=== PATIENT | male | born 1935 | race Caucasian/White ===

== ENCOUNTER → 2016-11-05 | Outpatient (CLI) | payer OTHER | LOC: BHFA 15:00 | PROVIDERS: ATTEND Internal Medicine Cardiovascular Disease | DX: R60.0 Localized edema (principal) ==

== ENCOUNTER 2017-04-22 10:10 | Emergency (ER) | payer OTHER ==
[2017-04-22 10:18] VITALS: RESP 18
--- NOTE | 2017-04-22 10:32 | CPEKG ---
Heart Rate: 75 RR Interval: 800 P-R Interval: 238 QRSD Interval: 104 QT Interval: 428 QTC Interval: 479 P Lenore: 0 QRS Lenore: -5 T Wave Lenore: -8 EKG Severity - ABNORMAL ECG - EKG Impression: Atrial fibrillation EKG Impression: ABNRM R PROG, CONSIDER ASMI OR LEAD PLACEMENT EKG Impression: BORDERLINE T ABNORMALITIES, INFERIOR LEADS EKG Impression: BORDERLINE PROLONGED QT INTERVAL Electronically Signed By: Deedee Del Angel 22-Apr-2017 14:36:42
--- NOTE | 2017-04-22 10:49 | EDPHY ---
H & P Stated Complaint: Vertigo since this morning; also c/o R leg/back pain post car trip[ Time Seen by Provider: 04/22/17 10:22 HPI/ROS: CHIEF COMPLAINT: Vertigo, leg pain HISTORY OF PRESENT ILLNESS: The patient is a 81 y/o male with a history of vertigo complaining of now-resolved vertigo onset this morning. He returned from a driving trip to [place] on Tuesday, 2 days ago. During the trip he developed lower back pain with right hip pain. His symptoms are alleviated somewhat with massage, Aleve, and stretching exercises. He reports doing vertigo exercises daily as a preventative measure. Today while performing these exercises he lied on his left side and developed acute onset dizziness. These symptoms worsened with movement of his head and felt exactly the same as prior episodes except it lasted much longer for several minutes. His dizziness has since improved. He denies headache, weakness, paresthesias, incontinence, vision changes, or other symptoms. He was unable to get an appointment with his PCP today and was referred to the ED or urgent care for evaluation. REVIEW OF SYSTEMS: Constitutional: No fever, no chills Eyes: No visual changes ENT: No sore throat Respiratory: No cough, no shortness of breath Cardiac: No chest pain Gastrointestinal: No nausea, no vomiting, no abdominal pain Genitourinary: No hematuria, no dysuria Musculoskeletal: see HPI Skin: No rash Neurological: No headache, no numbness, no weakness Psychiatric: No depression - Personal History Current Tetanus Diphtheria and Acellular Pertussis (TDAP): Yes - Medical/Surgical History PMH: PMH includes: 1. Atrial fibrillation 2. Hypertension 3. Hyperlipidemia 4. Vertigo Prior medical records reviewed including ED visit for epistaxis on 05/02/12. Hx Cardiac Disease: Yes Other PMH: vertigo w/ negative neuro workup 2016. afib - Social History Smoking Status: Former smoker Additional Social History: Former commercial drone pilot. Nonsmoker. at bedside. PCP: Dr. Mccord - Physical Exam Exam: General Appearance: Alert, no distress Eyes: Pupils equal and round, no conjunctival pallor or injection, no nystagmus ENT, Mouth: Mucous membranes moist Neck: Normal inspection Respiratory: Lungs are clear to auscultation Cardiovascular: Regular rate and rhythm Gastrointestinal: Abdomen is soft and non- tender Neurological: Alert, oriented x3, cranial nerves II through XII intact, motor 5 /5, sensory intact to light touch, normal gait Skin: Warm and dry, no rash Extremities: Nontender, no pedal edema, normal straight-leg raise Psychiatric: Mood and affect normal Constitutional: Initial Vital Signs Temperature (C) 36.7 C 04/22/17 10:12 Heart Rate 77 04/22/17 10:12 Respiratory Rate 18 04/22/17 10:12 Blood Pressure 137/105 H 04/22/17 10:12 O2 Sat (%) 99 04/22/17 10:12 O2 Delivery Mode Room Air Allergies/Adverse Reactions: No Known Allergies Allergy (Verified 04/22/17 10:18) Home Medications: Medication Instructions Recorded Aspirin [Aspirin 81mg (*)] 04/22/17 Atorvastatin Calcium [Lipitor 40 40 mg PO 04/22/17 mg (*)] Diltiazem [Cardizem 60 MG (*)] 60 mg PO 04/22/17 Hydrochlorothiazide [HCTZ (*)] 25 mg PO DAILY 04/22/17 Rivaroxaban [Xarelto 10mg (*)] 10 mg PO 04/22/17 Medical Decision Making ED Course/Re-evaluation: This is a 81 y/o male with a history of vertigo who presents with now-resolved acute onset dizziness after rolling onto his left side this morning. He also complains of right gluteal pain since a long car trip earlier this week. His neuro exam is completely normal and his dizziness has resolved upon assessment. No indication for imaging at this time. The patient is able to walk with a steady gait. We will perform EKG and basic labs and if those are normal he will be discharged home with standard vertigo and sciatica care instructions with specific follow up and return precautions. He is comfortable with this plan. The 12 lead EKG was interpreted by myself. Atrial fibrillation rate 75. No ischemia. See hard copy and/or "tracemaster" electronic copy for interpretation. Reassessed patient. Labs unremarkable except for slightly low potassium at 3.3. He will receive 20meq PO potassium prior to discharge. His exam remains normal. He will be discharged home in good condition. - Data Points Laboratory Results: Laboratory Results 04/22/17 10:36 04/22/17 10:36 04/22/17 04/22/17 10:36 10:36 WBC 7.32 10^3/uL 10^3/uL (3.80-9.50) RBC 4.70 10^6/uL 10^6/uL (4.40-6.38) Hgb 16.6 g/dL g/dL (13.7-17.5) Hct 44.5 % % (40.0-51.0) MCV 94.7 fL fL (81.5-99.8) MCH 35.3 pg H pg (27.9-34.1) MCHC 37.3 g/dL H g/dL (32.4-36.7) RDW 12.3 % % (11.5-15.2) Plt Count 144 10^3/uL L 10^3/uL (150-400) MPV 10.5 fL fL (8.7-11.7) Neut % (Auto) 40.8 % % (39.3-74.2) Lymph % (Auto) 39.2 % % (15.0-45.0) Franklin % (Auto) 9.4 % % (4.5-13.0) Eos % (Auto) 9.7 % H % (0.6-7.6) Baso % (Auto) 0.8 % % (0.3-1.7) Nucleat RBC Rel Count 0.0 % % (0.0-0.2) Absolute Neuts (auto) 2.98 10^3/uL 10^3/uL (1.70-6.50) Absolute Lymphs (auto) 2.87 10^3/uL 10^3/uL (1.00-3.00) Absolute Monos (auto) 0.69 10^3/uL 10^3/uL (0.30-0.80) Absolute Eos (auto) 0.71 10^3/uL H 10^3/uL (0.03-0.40) Absolute Basos (auto) 0.06 10^3/uL 10^3/uL (0.02-0.10) Absolute Nucleated RBC 0.00 10^3/uL 10^3/uL (0-0.01) Immature Gran % 0.1 % % (0.0-1.1) Immature Gran # 0.01 10^3/uL 10^3/uL (0.00-0.10) Sodium 142 mEq/L mEq/L (134-144) Potassium 3.3 mEq/L L mEq/L (3.5-5.2) Chloride 103 mEq/L mEq/L (97-110) Carbon Dioxide 21 mEq/l L mEq/l (22-31) Anion Gap 18 mEq/L H mEq/L (8-16) BUN 18 mg/dL mg/dL (7-23) Creatinine 1.2 mg/dL mg/dL (0.7-1.3) Estimated GFR 58 Glucose 133 mg/dL H mg/dL (70-100) Calcium 9.7 mg/dL mg/dL (8.5-10.4) Departure - Departure Disposition: Home, Routine, Self-Care Clinical Impression: Vertigo, Right sided sciatica Condition: Good Instructions: Meclizine (By mouth), Vertigo (ED), Sciatica (ED) Additional Instructions: 1. Take Meclizine, available [id number], if your vertigo symptoms return. 2. If your dizziness becomes persistent for more than 1-2 days, I recommend follow up with an ENT. You've been referred to Dr. Wren. 3. Use Aleve as directed on the packaging for your sciatica for the next few days. Follow up with your primary care provider for unimproved pain over the next few days. 4. Return to the ED for severe headache, weakness, numbness, vision changes, bowel or bladder incontinence, or other worsening of condition. 5. Your potassium is slightly low at 3.3. I recommend follow up with your PCP for this in the next week. Referrals: Daron Mccord MD [Primary Care Provider] - As per Instructions Lara Reyes MD [Medical Doctor] - As per Instructions Report Scribed for: Deedee Del Angel Report Scribed by: Hayde Lockwood Date of Report: 04/22/17 Time of Report: 10:49 Physician Review and Approval Statement: 04/22/17 10:49 Portions of this note were transcribed by a director global medical affairs. I personally performed a history, physical exam, medical decision making, and confirmed accuracy of information the transcribed note.
[2017-04-22 10:54] LABS: % IMMATURE GRANULYOCYTES 0.1 % (0.0-1.1); ABSOLUTE IMMATURE GRANULOCYTES 0.01 10^3/uL (0.00-0.10); ADD DIFF? NO; ADD MORPH? NO; ADD SCAN? NO; ATYPICAL LYMPHOCYTE FLAG 10 (0-99); FRAGMENT RBC FLAG 0 (0-99); HEMATOCRIT 44.5 % (40.0-51.0); HEMOGLOBIN 16.6 g/dL (13.7-17.5); LEFT SHIFT FLG 0 (0-99); LIPEMIA HEMOLYSIS FLAG 90 (0-99); MEAN CELL HEMOGLOBIN 35.3 pg (27.9-34.1); MEAN CELL HEMOGLOBIN CONCENTR. 37.3 g/dL (32.4-36.7); MEAN CELL VOLUME 94.7 fL (81.5-99.8); MEAN PLATELET VOLUME 10.5 fL (8.7-11.7); PLATELET CLUMPS FLAG 10 (0-99); PLATELET COUNT 144 10^3/uL (150-400); RED CELL DISTRIBUTION WIDTH 12.3 % (11.5-15.2)
[2017-04-22 11:12] LABS: ANION GAP 18 mEq/L (8-16); CALCIUM 9.7 mg/dL (8.5-10.4); CARBON DIOXIDE 21 mEq/l (22-31); CHLORIDE 103 mEq/L (97-110); CREATININE 1.2 mg/dL (0.7-1.3); GLOMERULAR FILTRATION RATE 58; GLUCOSE 133 mg/dL (70-100); POTASSIUM 3.3 mEq/L (3.5-5.2); SODIUM 142 mEq/L (134-144)
[2017-04-22] MEDS ORDERED: POTASSIUM CL 20 MEQ PKT PO ONE (11:26)
[2017-04-22 12:02] VITALS: BP 125/78; PULSE 71; TEMP 97.9; O2SAT 95
== END 2017-04-22 12:04 | disposition home or self-care (01) ==
DX: R42 Dizziness and giddiness (principal); M54.31 Sciatica, right side; I10 Essential (primary) hypertension; Z79.82 Long term (current) use of aspirin; Z87.891 Personal history of nicotine dependence

== ENCOUNTER → 2018-10-11 | Outpatient (CLI) | payer OTHER | END | disposition home or self-care (01) | LOC: FCPNEURO 21:00 | PROVIDERS: ATTEND Psychiatry & Neurology Sleep Medicine | DX: G47.31 Primary central sleep apnea (principal) ==

== ENCOUNTER 2018-10-31 09:04 | Inpatient (IN) | payer OTHER ==
--- NOTE | 2018-10-31 09:45 | EDPHY ---
H & P Stated Complaint: 2xmech falls yest, denies LOC/hit head, L hip pn s deform Time Seen by Provider: 10/31/18 09:07 - Medical/Surgical History Hx Asthma: No Hx Chronic Respiratory Disease: No Hx Diabetes: No Hx Cardiac Disease: Yes Hx Renal Disease: No Hx Cirrhosis: No Hx Alcoholism: No Hx HIV/AIDS: No Hx Splenectomy or Spleen Trauma: No Other PMH: vertigo w/ negative neuro workup 2015. afib - Social History Smoking Status: Former smoker Constitutional: Initial Vital Signs Temperature (C) 36.6 C 10/31/18 09:12 Heart Rate 104 H 10/31/18 09:12 Respiratory Rate 20 10/31/18 09:12 Blood Pressure 134/90 H 10/31/18 09:12 O2 Sat (%) 97 10/31/18 09:12 O2 Delivery Mode Room Air Allergies/Adverse Reactions: No Known Allergies Allergy (Verified 10/31/18 09:11) Home Medications: Medication Instructions Recorded Aspirin [Aspirin 81mg (*)] 04/22/17 Atorvastatin Calcium [Lipitor 40 40 mg PO 04/22/17 mg (*)] Diltiazem [Cardizem 60 MG (*)] 60 mg PO 04/22/17 Hydrochlorothiazide [HCTZ (*)] 25 mg PO DAILY 04/22/17 Rivaroxaban [Xarelto 10mg (*)] 10 mg PO 04/22/17 Hydrocodone/APAP 5/325 [[place] 1 - 2 each PO Q4-6PRN PRN #20 tab 10/31/18 5/325] Medical Decision Making - Diagnostics Imaging Results: Imaging Impressions Hip X-Ray 10/31/18 09:16 Impression: Negative. No acute fracture or dislocation. Comment: If the patient is unable to bear weight, recommend noncontrast CT of the pelvis to optimally characterize. Imaging: Discussed imaging studies w/ call center agent Radiologist, I viewed and interpreted images myself ED Course/Re-evaluation: CHIEF COMPLAINT: Left hip pain secondary to two mechanical falls HISTORY OF PRESENT ILLNESS: The patient is an anticoagulated (Xarelto) 83 y/o male with a history of atrial fibrillation and vertigo arriving via EMS complaining of left hip pain secondary to two mechanical falls yesterday. The patient went outside to get the mail when he slipped on ice and fell twice. He denies hitting his head or loss of consciousness. He was able to walk with pain and limited range of motion. A friend who is a retired physician saw the patient yesterday and was concerned that the patient had a blood clot as he is on Xarelto. Due to the pain and concern of a blood clot the patient called EMS and decided to present to the emergency department. No fever, headache, chest pain, shortness of breath , abdominal pain, urinary or bowel complaints, numbness, paresthesias. REVIEW OF SYSTEMS: A 10 point review of systems was performed and is negative with the exception of the elements mentioned in the history of present illness. PHYSICAL EXAM: HR, BP, O2 Sat, RR. Temp noted General Appearance: Alert, well hydrated, appropriate, and non-toxic appearing. Head: Atraumatic without scalp tenderness or obvious injury Eyes: Pupils equal, round, reactive to light and accommodation, EOMI, no trauma , no injection. Ears: Clear bilaterally, no perforation, normal landmarks Nose: Atraumatic, no rhinorrhea, clear. Throat: There is no erythema or exudates, no lesions, normal tonsils, mucus membranes moist. Neck: Supple, 2+ carotid upstroke, nontender, no lymphadenopathy. Respiratory: No retractions, no distress, no wheezes, and no accessory muscle use. Lungs are clear to auscultation bilaterally. Cardiovascular: Regular rate and rhythm, no murmurs, rubs, or gallops. Bilateral carotid, radial, dorsalis pedis, and posterior tibial pulses intact. Good capillary refill all extremities. Gastrointestinal: Abdomen is soft, nontender, non-distended, no masses, no rebound, no guarding, no peritoneal signs. Musculoskeletal: Tenderness in left hip and groin with pain with ROM. Normal active ROM of all other extremities. Neurological: Alert, appropriate, and interactive. The patient has normal DTRs and non-focal cranial nerves, motor, sensory, and cerebellar exam. Skin: No rashes, good turgor, no nodules on palpation. Past medical history: Vertigo with a negative neuro workup 2016, atrial fibrillation Past surgical history: Denies Family history: Denies Social history: Lives in [place], at bedside, retired DIAGNOSTICS/PROCEDURES/CRITICAL CARE TIME: Left hip x-ray: No acute fracture or dislocation. Pelvic CT: Medial groin hematoma from a muscle tear/strain while on Xarelto. There was no osseous injury visualized. DIFFERENTIAL DIAGNOSIS: The differential diagnosis for the patient's hip injury included but was not limited to hematoma, fracture, ligamentous injury, contusion, muscular strain. MEDICAL DECISION MAKING: The patient is an anticoagulated (Xarelto) 83 y/o male with a history of atrial fibrillation and vertigo arriving via EMS presenting with left hip pain secondary to slipping on ice twice yesterday. On exam he has pain in his left hip and groin with more pain with range of motion. Left hip x-ray ordered. 1009: I reviewed patient's hip x-ray; pelvic CT ordered. 1041: I spoke with Dr. Bragg, radiologist, regarding patient's pelvic CT. There is a medial groin hematoma from a muscle tear or strain while on Xarelto. There was no osseous injury visualized. Patient will need to follow up with an orthopedic surgeon. 1049: Reassessed patient and discussed imaging findings. He is unable to bear weight even with a walker and will need to be admitted for pain control. Upon re -examination there are no signs of compartment syndrome. Patient and his are comfortable with this plan. 1106: I consulted with the hospitalist service, Dr. Kelly accepts admission of this patient. 1107: I consulted with Dr. Savage, orthopedic surgeon, regarding this patient. He agrees to consult on this patient during his admission. Departure - Departure Disposition: [facility] Inpatient Acute Clinical Impression: Unable to ambulate, Pain management Groin hematoma Qualifiers: Encounter type: initial encounter Qualified Code(s): S30.1XXA - Contusion of abdominal wall, initial encounter Condition: Fair Instructions: Hematoma (ED) Additional Instructions: 1. Rest, ice, elevation. 2. Follow up with an orthopedic surgeon within one week. 3. Return to the emergency department for worsening pain, swelling, numbness, weakness or other concerns. 4. Use ibuprofen in addition to prescribed pain medication as directed for pain. Referrals: Jake Savage MD [Medical Doctor] - As per Instructions Prescriptions: Hydrocodone/APAP 5/325 [[place] 5/325] 1 - 2 each PO Q4-6PRN PRN #20 tab PRN Reason: Pain, Moderate Report Scribed for: Juan Yoon Report Scribed by: Netta Hicks Date of Report: 10/31/18 Time of Report: 09:45
[2018-10-31] MEDS ORDERED: ONDANSETRON DISINTEGRATING 4 MG TAB PO PRN (11:16)
[2018-10-31] MEDS ORDERED: ACETAMINOPHEN 325 MG TAB PO PRN (11:16)
[2018-10-31] MEDS ORDERED: OXYCODONE/APAP 5/325 TAB PO PRN (11:16)
[2018-10-31] MEDS ORDERED: ONDANSETRON 4 MG/2 ML VIAL IVP PRN (11:16)
--- NOTE | 2018-10-31 13:29 | GCON ---
[f rep st] CONSULTATION ORTHOPEDIC CONSULTATION DATE OF CONSULTATION: 10/31/2018 REASON FOR CONSULTATION: Hematoma, left thigh. HPI: Ric is a very pleasant 83-year-old male who had 2 mechanical falls at home yesterday. He was having difficulty bearing weight at home today. EMS was called. He was brought to the emergency dep artment. Both, plain imaging and CT scan, were obtained. There were no osseous abnormalities; howev er, he did have a hematoma in his left groin. This corresponds to his site of pain. He is on Xarelt o for atrial fibrillation. PRIOR MEDICAL HISTORY: Atrial fibrillation, high cholesterol, vertigo. PRIOR SURGICAL HISTORY: None. SOCIAL HISTORY: He is . His and daughter are here with him at the hospital today. He i s a former smoker. Occasional alcohol use. REVIEW OF SYSTEMS: No loss of consciousness. No shortness of breath or chest pain. PHYSICAL EXAM: VITAL SIGNS: Blood pressure is 123/101, heart rate is 120, respiratory rate 18. Oxy gen saturation 93% on room air. Temperature is 36.6. GENERAL: Alert and oriented x3. HEENT: Norm ocephalic, atraumatic. Extraocular muscles intact. NECK: Supple. There is no lymphadenopathy. No JVD. CHEST: Clear to auscultation. CARDIOVASCULAR: Regular rate and rhythm. ABDOMEN: Soft, non tender, nondistended. SKIN/EXTREMITIES: Left hip, skin is intact. There is a fullness in his groin consistent with a hematoma. Minimally tender to palpation. He has full extension of the hip, 100 d egrees of flexion, 30 of internal/external rotation really with no discomfort. Otherwise, compartmen ts are soft. He has 5/5 ankle dorsiflexion, plantar flexion, strength; 1+ dorsalis pedis and posteri or tibial pulses. IMAGING: Both, CT scan and plain imaging, are reviewed. No acute fractures are seen. He does have a fluid collection in his groin consistent with a hematoma. ASSESSMENT: Hematoma, status post 2 mechanical falls at home. PLAN: He is admitted to the hospital service. Will hold his anticoagulation, mobilize him with Phys ical and Occupational Therapy, see if we can get him comfortable.. I do not anticipate any surgical intervention for this hematoma, at this point, and I anticipate he will be here a day or two to impro ve his independent mobility. /[id number]/MODL
[2018-10-31] MEDS ORDERED: ACYCLOVIR 5% TP PRN (14:42)
--- NOTE | 2018-10-31 14:47 | PDGENHP ---
History and Physical - Chief Complaint L hip pain - History of Present Illness Ric Dwyer is a 83 yo M with a PMHx of A Fib on Xarelto HTN, HLD who presents to [facility] after fall yesterday with L hip pain found to have medial groin intramuscular hematoma. Patient reports that he was going to get mail from the mailbox yesterday when he fell onto his L side. He started having significant L sided hip/groin pain after the fall. He was unable to ambulate on his LLE without significant pain. He denies any muscle weakness, numbness/tingling, LH/ dizziness, LOC, chest pain, SOB, n/v, d/c, f/c. In the ED, XR of L hip was performed which was negative for fracture. Pelvic CT was then performed which showed medial groin intramuscular hematoma measuring 11.2x7.5 cm. History Information - Allergies/Home Medication List Allergies/Adverse Reactions: No Known Allergies Allergy (Verified 10/31/18 09:11) Home Medications: Aspirin [Aspirin 81mg (*)] 81 mg PO Q2D 04/22/17 [Last Taken Unknown] Rivaroxaban [Xarelto 10mg (*)] 20 mg PO HS 04/22/17 [Last Taken 10/30/18] Acyclovir 5% [Zovirax 5% 30gm Oint (RX)] 1 jaqueline TP DAILY PRN 10/31/18 [Last Taken Unknown] Ascorbic Acid [Vitamin C 500 mg (*)] 500 mg PO DAILY 10/31/18 [Last Taken Unknown] Atorvastatin Calcium [Lipitor 20 mg (*)] 20 mg PO HS 10/31/18 [Last Taken ] Cholecalciferol Vit D3 [Vitamin D3 (*)] 1,000 units PO DAILY 10/31/18 [Last Taken Unknown] Diltiazem HCl [Cartia XT 180mg] 180 mg PO DAILY 10/31/18 [Last Taken 10/31/18] Esomeprazole Mag Trihydrate [Nexium] 40 mg PO DAILY 10/31/18 [Last Taken ] Metoprolol Succinate Xr [Toprol Xl 25 mg (*)] 25 mg PO DAILY 10/31/18 [Last Taken 10/31/18] Multivitamins [Multivitamin (*)] 1 each PO DAILY 10/31/18 [Last Taken Unknown] Propylene Glycol/Peg 400/Pf [Systane 0.3-0.4% Eye Drops] 1 each OP QID 10/31/18 [Last Taken 10/31/18] Sodium Cl Nasal [Chamita Gaston (*)] 1 spray NS BID 10/31/18 [Last Taken 10/31/18] Triamterene/Hctz 37.5/25 [Dyazide 37.5/25 (*)] 1 each PO HS 10/31/18 [Last Taken 10/30/18] valACYclovir [Valtrex (*)] 1,000 mg PO BID PRN 10/31/18 [Last Taken Unknown] I have personally reviewed and updated: family history, medical history, social history, surgical history - Past Medical History atrial fibrillation, hypertension, hyperlipidemia - Social History Smoking Status: Former smoker Review of Systems Review of Systems: ROS: 10pt was reviewed & negative except for what was stated in HPI & below Physical Exam Physical Exam: Temp Pulse Resp BP Pulse Ox 36.6 C 120 H 18 123/101 H 93 10/31/18 12:37 10/31/18 12:37 10/31/18 12:37 10/31/18 12:37 10/31/18 12:37 Constitutional: no apparent distress Eyes: PERRL Ears, Nose, Mouth, Throat: moist mucous membranes Cardiovascular: regular rate and rhythym Respiratory: no respiratory distress, clear to auscultation Gastrointestinal: soft, non-tender abdomen Skin: warm Musculoskeletal: pain with ROM Neurologic: AAOx3 Psychiatric: interacting appropriately Assessment & Plan Assessment: Groin hematoma (Acute) - S/p mechanical fall yesterday, landing on L side - CT Pelvis performed on admission showing 11.2 x7.5 cm intramuscular hematoma on L - Ortho consulted in ED, no intervention recommended - Will hold home Xarelto in setting of hematoma, continue baby ASA - PT/OT - Pain management PRN - Monitor H/H A Fib - Hx of A Fib, s/p 1 DCCV currently on Diltiazem and Metoprolol - Continue rate controlling medications above - HR 100-120's on admission, likely in setting of pain, continue to monitor - Holding home Xarelto for hematoma as above, continue ASA 81 mg HTN - BP WNL on admission - Continue home medications HLD - Continue home statin FEN: Regular DVT PPx: SCDs in setting of hematoma Code: DNR Dispo: Admit to observation
[2018-10-31] MEDS: HYDROmorphONE/DILAUDID 1 MG/ML INJ IVP PRN ×2 (16:43→17:38)
[2018-10-31] MEDS: TEARS/DEXTRAN 70/HYPROMELLOSE 15 ML OPHT.BTL OP SCH ×2 (17:48→20:06)
[2018-10-31 17:58] LABS: PLATELET COUNT 172 10^3/uL (150-400)
[2018-10-31 18:11] LABS: INR 1.88 (0.83-1.16); PROTIME(PATIENT) 21.7 SEC (12.0-15.0)
[2018-10-31] MEDS: SODIUM CL NASAL 45 ML BTL NS SCH (20:06)
[2018-10-31] MEDS: ATORVASTATIN CALCIUM 20 MG TAB PO SCH (20:14)
[2018-10-31] MEDS: TRIAMTERENE/HCTZ 37.5/25 1 EACH CAP PO SCH (20:15)
[2018-11-01] MEDS: TEARS/DEXTRAN 70/HYPROMELLOSE 15 ML OPHT.BTL OP SCH (05:33)
[2018-11-01] MEDS: ASCORBIC ACID 500 MG TAB PO SCH (08:53)
[2018-11-01] MEDS: PANTOPRAZOLE SODIUM 40 MG TAB PO SCH (08:53)
[2018-11-01] MEDS: METOPROLOL SUCCINATE XR 25 MG TAB PO SCH (08:53)
[2018-11-01] MEDS: CHOLECALCIFEROL VIT D3 1,000 UNITS TAB PO SCH (08:53)
[2018-11-01] MEDS: MULTIVITAMINS 1 EACH TAB PO SCH (08:53)
[2018-11-01] MEDS: SODIUM CL NASAL 45 ML BTL NS SCH ×2 (08:54→16:48)
[2018-11-01] MEDS ORDERED: DILTIAZEM CD 180 MG CAP PO SCH (09:00)
[2018-11-01 09:24] LABS: PLATELET COUNT 160 10^3/uL (150-400)
[2018-11-01] MEDS: [UNRECOGNIZED DRUG - OTHER] OP SCH ×3 (14:06→22:37)
--- NOTE | 2018-11-01 15:37 | HOSPPROG ---
Hospitalist Progress Note Assessment/Plan: Ric Dwyer is a 83 yo M with a PMHx of A Fib on Xarelto HTN, HLD who presents to [facility] after a fall with L hip pain found to have medial groin intramuscular hematoma. First encounter, chart reviewed. *Groin hematoma - S/p mechanical fall yesterday - CT Pelvis performed on admission showing 11.2 x7.5 cm intramuscular hematoma on L - Ortho consulted in ED, no intervention recommended - Will hold home Xarelto in setting of hematoma, continue baby ASA - PT recommending SNF *anemia -due to the above *renal insufficiency -creat is higher than his baseline -will hold his diuretic today, he was very dehydrated *hypokalemia -will give a dose of potassium *hyponatremia -patient appears dry, will hold his diuretic *tremors -per this is new since the fall, but also noted he had this in July -neurology to see him tomorrow -CT scan of head ordered *Leukocytosis -possibly stress induced, -wbc increased today, will monitor for any infectious etiology *hyperglycemia -follow -will check an A1c *A Fib, chronic - sees Dr Mojica in the OP setting - Hx of A Fib, s/p 1 DCCV currently on Diltiazem and Metoprolol - Holding home Xarelto for hematoma as above, continue ASA 81 mg HTN -bp stable HLD - statin *plan: patient will require another midnight stay, extremely weak, can't walk to the bathroom, has significant upper extremity tremors; spoke w neurology who will see him tomorrow. Will get a head CT today. Also, spoke to Dr Mojica who knows Ric. She will come by to check in with him. Mr Dwyer will require another midnight stay for further evaluation of all the above. Reviewed w the patient and his , Desiree, the plan of care. Subjective: Ric has significant pain to the left groin area. Says it makes it difficult to walk. Objective: Vital Signs Temp Pulse Resp BP Pulse Ox 36.7 C 105 H 16 116/76 98 11/01/18 11:33 11/01/18 11:33 11/01/18 11:33 11/01/18 11:33 11/01/18 11:33 Laboratory Results 11/01/18 09:12 11/01/18 09:12 0111/01/18 11/02/18 05:59 05:59 05:59 Intake Total 2100 Output Total 380 300 Balance 1720 -300 PT 21.7 SEC (12.0-15.0) H 10/31/18 17:30 INR 1.88 (0.83-1.16) H 10/31/18 17:30 - Physical Exam Constitutional: appears nourished, uncomfortable Eyes: PERRL Ears, Nose, Mouth, Throat: hearing normal Cardiovascular: irregularly irregular Respiratory: no respiratory distress Skin: warm, other (left groin area w some swelling, no ecchymosis noted. ) Musculoskeletal: generalized weakness, other (has tremors with upper extremities bilaterally - moreso w purposeful movement.) Neurologic: AAOx3 Psychiatric: interacting appropriately ICD10 Worksheet Patient Problems: Problems Problem Status Onset Groin hematoma Acute Pain management Acute Unable to ambulate Acute
--- NOTE | 2018-11-01 16:04 | ASMTCMCOM ---
CM Note CM Note Notes: Pt admitted to hospital after fall on ice at home, on his way to the mailbox. Pt has a large hematoma that makes it difficult for him to walk. He lives at home with his , concerns for parkinsons, may need SNF. Hospitalist to get neurology consult. DC Plan: TBD Date Signed: 11/01/2018 04:03 PM Electronically Signed By:Sydni Vogel RN
[2018-11-01] MEDS ORDERED: POTASSIUM CL 20 MEQ TAB PO ONE (17:23)
[2018-11-01] MEDS: DILTIAZEM CD 180 MG CAP PO SCH (18:12)
[2018-11-01] MEDS: HYDROCODONE/APAP 5/325 TAB PO PRN (20:25)
[2018-11-01] MEDS: ATORVASTATIN CALCIUM 20 MG TAB PO SCH (22:37)
[2018-11-02 05:24] LABS: PLATELET COUNT 146 10^3/uL (150-400)
[2018-11-02] MEDS: [UNRECOGNIZED DRUG - OTHER] OP SCH ×4 (05:30→17:45)
[2018-11-02] MEDS ORDERED: PROTOCOL POTASSIUM 1 DOSE MISC PRN (07:54)
[2018-11-02] MEDS: MULTIVITAMINS 1 EACH TAB PO SCH (08:19)
[2018-11-02] MEDS: METOPROLOL SUCCINATE XR 25 MG TAB PO SCH (08:19)
[2018-11-02] MEDS: PANTOPRAZOLE SODIUM 40 MG TAB PO SCH (08:19)
[2018-11-02] MEDS: ASCORBIC ACID 500 MG TAB PO SCH (08:20)
[2018-11-02] MEDS: CHOLECALCIFEROL VIT D3 1,000 UNITS TAB PO SCH (08:22)
[2018-11-02] MEDS: SODIUM CL NASAL 45 ML BTL NS SCH ×2 (08:22→17:42)
[2018-11-02] MEDS ORDERED: ASPIRIN 81 MG CHEWABLE TAB PO SCH (09:00)
[2018-11-02] MEDS ORDERED: POTASSIUM CL 10 MEQ TAB PO ONE (09:09)
--- NOTE | 2018-11-02 10:24 | GCON ---
[f rep st] CONSULTATION NEUROLOGY CONSULT REFERRING PHYSICIAN: Candace Burdick NP CHIEF COMPLAINT: Tremor. HISTORY OF PRESENT ILLNESS: Mr. Dwyer is a very pleasant 83-year-old gentleman retired from [employer]. He has a longstanding history of action tremor in both upper extremities for 10+ years which has slowly progressed. It has been somewhat exacerbated with this current illness of falling, pain, and groin hematoma. However, it is essentially close back to its baseline. There are no symptoms of rest tremor, shuffling gait, or other parkinsonian symptoms. His family history is unclear. His father of a myocardial infarction at 61, and he never met his grandparents. For past medical history, social history, family history, home medications see the history and physical by Dr. Kelly. REVIEW OF SYSTEMS: Ten-point review of systems was done and only pertinent to the HPI. PHYSICAL EXAM: VITAL SIGNS: Blood pressure 139/62, temperature 36.7, respirations 16. GENERAL: Patient is in no acute distress, very pleasant. NEUROLOGIC: Higher mental function is normal. Face is symmetric. Extraocular movements are full. On motor exam, no focal weakness. In the upper extremities , he does have some mild action tremor in his upper extremities, benign essential tremor. Muscle tone is normal. IMPRESSION/PLAN: 1. Benign essential tremor. Overall, the patient's clinical history and neurologic exam are consistent with benign essential tremor. We discussed this diagnosis at length, including pathophysiology, genetics, and treatment. At this point, it does not bother the patient enough to treat, per his wishes. I counseled him that is certainly reasonable, that treatment is entirely dependent on patient preference. Going forward, if they change their mind and would like to treat the benign essential tremor, the first step would be to switch his metoprolol to an equivalent beta blockade dose to long-acting propranolol. Certainly we could do this as an outpatient if he changes his mind, or his primary care physician / supervisor telephone information as well. We did a head CT without contrast to exclude any intracranial hemorrhage last night, and this was negative fortunately. They were counseled at length. No further recommendations now. We will sign off and follow up as needed. Please do not hesitate to call if there are any questions or changes in neurologic status with this very pleasant patient. The patient has been given our office number to call and make a followup if he would like to initiate treatment as noted above. Seventy total minutes floor time reviewing records, history, imaging; over 50% in counseling and coordination of care. /[id number]/MODL PREET
--- NOTE | 2018-11-02 10:26 | PDMN ---
Medical Necessity Medical necessity: Pt meets IP criteria as of 11/01/2018 per and MCG MG-N ( Neurological GRG) and MGMARISSA (Musculoskeletal Disease GRG); los > 2 mn for ongoing tx and management of groin hematoma with anemia on chronic a/c s/p mechanical fall as well as new onset tremor, hyponatremia, hypokalemia, leukocytosis, and hyperglycemia; pt unable to perform baseline ADL's d/t pain and tremor; requiring neurology consultation, further work up, serial labs, pain control and PT/OT; Comorbid Afib, HTN, and HLD.
--- NOTE | 2018-11-02 14:57 | HOSPPROG ---
Hospitalist Progress Note Assessment/Plan: Ric Dwyer is a 83 yo M with a PMHx of A Fib on Xarelto HTN, HLD who presents to [facility] after a fall with L hip pain found to have medial groin intramuscular hematoma. Reviewed his care w Dr Rangel *Groin hematoma - S/p mechanical fall - CT Pelvis performed on admission showing 11.2 x7.5 cm intramuscular hematoma on L - Ortho consulted in ED, no intervention recommended - Will hold home Xarelto in setting of hematoma, hold baby ASA-hgb and hct trending down *anemia -due to the above *renal insufficiency -better w holding diuretic *hypokalemia -on protocol *hyponatremia -improved w holding his diuretic *essential tremors -appreciate Dr Rangel seeing him -he could take Inderal instead of Metoprolol- this would help tremors, he would like to wait on this *Leukocytosis -much improved *hyperglycemia -follow - A1c 5.7 *A Fib, chronic - sees Dr Mojica in the OP setting - Hx of A Fib, s/p 1 DCCV currently on Diltiazem and Metoprolol - Holding home Xarelto for hematoma as above, holding asa HTN -bp stable HLD - statin *plan: Ric is feeling much stronger today and is ambulate w assist, will recheck labs in a.m., resume his diuretic. Subjective: Ric is feeling better, still weak. appetite is good. Objective: Vital Signs Temp Pulse Resp BP Pulse Ox 36.8 C 102 H 16 113/62 97 11/02/18 07:45 11/02/18 08:19 11/02/18 07:45 11/02/18 08:19 11/02/18 07:45 Laboratory Results 11/02/18 05:01 11/02/18 05:01 11/01/18 11/02/18 11/03/18 05:59 05:59 05:59 Intake Total 2605 Output Total 1200 700 Balance 1405 -700 PT 21.7 SEC (12.0-15.0) H 10/31/18 17:30 INR 1.88 (0.83-1.16) H 10/31/18 17:30 - Physical Exam Constitutional: not in pain, obese Eyes: PERRL Ears, Nose, Mouth, Throat: hearing normal Cardiovascular: regular rate and rhythym Respiratory: no respiratory distress Skin: warm, other (ecchymosis noted under the left thigh area) Musculoskeletal: generalized weakness Neurologic: AAOx3 Psychiatric: interacting appropriately ICD10 Worksheet Patient Problems: Problems Problem Status Onset Groin hematoma Acute Pain management Acute Unable to ambulate Acute
[2018-11-02] MEDS: DILTIAZEM CD 180 MG CAP PO SCH (17:39)
[2018-11-02] MEDS: ATORVASTATIN CALCIUM 20 MG TAB PO SCH (17:43)
[2018-11-02] MEDS ORDERED: POTASSIUM CL 20 MEQ TAB PO ONE (20:30)
[2018-11-03] MEDS: [UNRECOGNIZED DRUG - OTHER] OP SCH ×4 (06:01→20:14)
[2018-11-03] MEDS ORDERED: POTASSIUM CL 10 MEQ TAB PO ONE ×2 (07:58→19:58)
[2018-11-03] MEDS: PANTOPRAZOLE SODIUM 40 MG TAB PO SCH (08:04)
[2018-11-03] MEDS ORDERED: POLYETHYLENE GLYCOL 3350 17 GM PKT PO PRN (08:04)
[2018-11-03] MEDS: CHOLECALCIFEROL VIT D3 1,000 UNITS TAB PO SCH (08:04)
[2018-11-03] MEDS: HYDROCODONE/APAP 5/325 TAB PO PRN (08:04)
[2018-11-03] MEDS ORDERED: BISACODYL 10 MG SUPP PR PRN (08:04)
[2018-11-03] MEDS: METOPROLOL SUCCINATE XR 25 MG TAB PO SCH (08:04)
[2018-11-03] MEDS ORDERED: LACTULOSE 20 GM/30 ML UDCUP PO PRN (08:04)
[2018-11-03] MEDS: MULTIVITAMINS 1 EACH TAB PO SCH (08:04)
[2018-11-03] MEDS: ASCORBIC ACID 500 MG TAB PO SCH (08:04)
[2018-11-03] MEDS: SENNOSIDES/DOCUSATE SODIUM TAB PO SCH ×2 (08:27→20:13)
[2018-11-03] MEDS: SODIUM CL NASAL 45 ML BTL NS SCH ×2 (09:11→20:14)
--- NOTE | 2018-11-03 10:26 | HOSPPROG ---
Hospitalist Progress Note Assessment/Plan: Ric Dwyer is a 83 yo M with a PMHx of A Fib on Xarelto HTN, HLD who presents to [facility] after a fall with L hip pain found to have medial groin intramuscular hematoma. *Groin hematoma - S/p mechanical fall - CT Pelvis performed on admission showing 11.2 x7.5 cm intramuscular hematoma on L - Ortho consulted in ED, spoke w Dr Savage and asked him to re-evaluate in the setting of HCT trending down - he does not have compartment swelling but swelling is worse today - Will continue holding Xarelto and aspirin in setting of hematoma *acute blood loss anemia -transfuse a unit of PRBC's -due to the above *renal insufficiency -stable *hypokalemia -on protocol *hyponatremia -recent Na 131 *essential tremors -appreciate Dr Rangel seeing him -he could take Inderal instead of Metoprolol- this would help tremors, he would like to wait on this *Leukocytosis -much improved *hyperglycemia -follow - A1c 5.7 *A Fib, chronic - sees Dr Mojica in the OP setting - Hx of A Fib, s/p 1 DCCV currently on Diltiazem and Metoprolol - Holding home Xarelto for hematoma as above, holding asa (updated Dr Mojica these meds are on hold for the above reason) HTN -bp low this morning, he is not c/o being lightheaded HLD - statin *plan: give a unit of PRBC's, Dr Savage to see, ultrasound ordered Subjective: Ric is not c/o pain, left leg is not bothering him. Objective: Vital Signs Temp Pulse Resp BP Pulse Ox 36.7 C 96 20 107/68 97 11/03/18 08:00 11/03/18 08:04 11/02/18 23:41 11/03/18 08:04 11/03/18 08:00 Laboratory Results 11/03/18 04:48 11/03/18 04:48 11/02/18 11/03/18 11/04/18 05:59 05:59 05:59 Intake Total 2605 1250 Output Total 1200 1650 325 Balance 1405 -400 -325 PT 21.7 SEC (12.0-15.0) H 10/31/18 17:30 INR 1.88 (0.83-1.16) H 10/31/18 17:30 - Physical Exam Constitutional: no apparent distress, appears nourished, not in pain Eyes: PERRL Ears, Nose, Mouth, Throat: hearing normal Cardiovascular: irregularly irregular Respiratory: no respiratory distress Skin: warm, other (left upper leg area w ecchymosis, swelling (more than yesterday), non tender) Musculoskeletal: generalized weakness Neurologic: AAOx3 Psychiatric: interacting appropriately ICD10 Worksheet Patient Problems: Problems Problem Status Onset Groin hematoma Acute Pain management Acute Unable to ambulate Acute
[2018-11-03] MEDS ORDERED: ACETAMINOPHEN 325 MG TAB PO ONE (10:41)
[2018-11-03 12:51] LABS: INR 1.06 (0.83-1.16)
--- NOTE | 2018-11-03 17:34 | ASMTCMCOM ---
CM Note CM Note Notes: Spoke w/pt and re; dc with homecare. Pt is agreeable, referral sent to [facility]. DC Plan: Home Care Date Signed: 11/03/2018 05:34 PM Electronically Signed By:Sydni Vogel RN
[2018-11-03] MEDS: DILTIAZEM CD 180 MG CAP PO SCH (17:55)
--- NOTE | 2018-11-03 19:11 | SOAPPROG ---
SOAP Progress Note Assessment/Plan: Assessment: Plan: 11/03/18 19:10 thigh hematoma Lt secondary to fall and xarelto Cont hold anticoagulants PT/OT PRBC Today added compressive wrap with shai Subjective: Pain better able to walk with walker Objective: THigh hematoma over adductor Mm's unchanged some bruising into scrotum thigh soft min pain with PROM hip US completed today size of hematoma similar to CT scan from tuesday Vital Signs Temp Pulse Resp BP Pulse Ox 37.1 C 105 H 17 98/65 L 91 L 11/03/18 15:54 11/03/18 17:55 11/03/18 15:54 11/03/18 17:55 11/03/18 15:54 Laboratory Results 11/03/18 04:48 11/02/18 11/03/18 11/04/18 05:59 05:59 05:59 Intake Total 2605 1250 1145 Output Total 1200 1650 525 Balance 1405 -400 620 PT 14.0 SEC (12.0-15.0) 11/03/18 12:22 INR 1.06 (0.83-1.16) 11/03/18 12:22 ICD10 Worksheet Patient Problems: Problems Problem Status Onset Groin hematoma Acute Pain management Acute Unable to ambulate Acute
[2018-11-03] MEDS: ATORVASTATIN CALCIUM 20 MG TAB PO SCH (20:13)
[2018-11-03] MEDS: TRIAMTERENE/HCTZ 37.5/25 1 EACH CAP PO SCH (20:13)
[2018-11-04] MEDS: HYDROCODONE/APAP 5/325 TAB PO PRN (05:34)
[2018-11-04] MEDS: [UNRECOGNIZED DRUG - OTHER] OP SCH ×2 (05:35→12:06)
[2018-11-04 07:38] VITALS: BP 120/83
[2018-11-04] MEDS: PANTOPRAZOLE SODIUM 40 MG TAB PO SCH (08:40)
[2018-11-04] MEDS: METOPROLOL SUCCINATE XR 25 MG TAB PO SCH (08:40)
[2018-11-04] MEDS: CHOLECALCIFEROL VIT D3 1,000 UNITS TAB PO SCH (08:40)
[2018-11-04] MEDS: MULTIVITAMINS 1 EACH TAB PO SCH (08:41)
[2018-11-04] MEDS: ASCORBIC ACID 500 MG TAB PO SCH (08:41)
[2018-11-04] MEDS: SENNOSIDES/DOCUSATE SODIUM TAB PO SCH (08:41)
[2018-11-04] MEDS: SODIUM CL NASAL 45 ML BTL NS SCH (09:36)
[2018-11-04] MEDS ORDERED: POTASSIUM CL 10 MEQ TAB PO ONE (10:18)
--- NOTE | 2018-11-04 11:34 | HOSPPROG ---
Hospitalist Progress Note Assessment/Plan: Ric Dwyer is a 83 yo M with a PMHx of A Fib on Xarelto HTN, HLD who presents to [facility] after a fall with L hip pain found to have medial groin intramuscular hematoma. *Groin hematoma - S/p mechanical fall - CT Pelvis performed on admission showing 11.2 x7.5 cm intramuscular hematoma on L - Ortho consulted in ED, appreciate Dr Savage - he does not have compartment swelling but swelling is worse today - Will continue holding Xarelto and aspirin in setting of hematoma *acute blood loss anemia -improved w transfusion *renal insufficiency -stable *hypokalemia -on protocol *hyponatremia -recent Na 131 *essential tremors -appreciate Dr Rangel seeing him -he could take Inderal instead of Metoprolol- this would help tremors, he would like to wait on this *Leukocytosis -much improved *hyperglycemia -follow - A1c 5.7 *A Fib, chronic - sees Dr Mojica in the OP setting - Hx of A Fib, s/p 1 DCCV currently on Diltiazem and Metoprolol - Holding home Xarelto for hematoma as above, holding asa (updated Dr Mojica these meds are on hold for the above reason) HTN -improved HLD - statin *plan: dc home w f/u with Dr Mojica, Dr Savage Subjective: Ric is dressed and ready to leave. Objective: Vital Signs Temp Pulse Resp BP Pulse Ox 36.4 C 109 H 16 120/83 H 95 11/04/18 07:32 11/04/18 07:32 11/04/18 07:32 11/04/18 07:32 11/04/18 07:32 Laboratory Results 11/04/18 04:29 11/04/18 04:29 11/03/18 11/04/18 11/05/18 05:59 05:59 05:59 Intake Total 1250 1645 Output Total 1650 525 Balance -400 1120 PT 14.0 SEC (12.0-15.0) 11/03/18 12:22 INR 1.06 (0.83-1.16) 11/03/18 12:22 - Physical Exam Constitutional: no apparent distress, not in pain Eyes: PERRL Ears, Nose, Mouth, Throat: hearing normal Respiratory: no respiratory distress Skin: warm, other (left leg swollen, swelling extending into the calf area) Musculoskeletal: generalized weakness Neurologic: AAOx3 Psychiatric: interacting appropriately, poor memory ICD10 Worksheet Patient Problems: Problems Problem Status Onset Groin hematoma Acute Pain management Acute Unable to ambulate Acute
--- NOTE | 2018-11-04 11:41 | PDIAF ---
- Diagnosis Diagnosis: left leg large hematoma w blood loss Code Status: Full Code - Medication Management Discharge Medications: electronically signed and located in the Home Medication List. PICC Care - Routine: N/A - Orders Services needed: Home Care, Registered Nurse, Physical Therapy, Occupational Therapy Home Care Face to Face: I certify that this patient was under my care and that I had the required [id number] encounter meeting the encounter requirements on the discharge day. My findings support the fact that the patient is homebound as defined in Home Care Face to Face Continued: CMS Chapter 7 Medicare Benefits Manual 30.1.1 , The condition of the patient is such that there exists a normal inability to leave home and consequently, leaving home would require a considerable and taxing effort. Diet Recommendation: no restrictions on diet Diet Texture: Regular Texture Diet Additional Instructions: 1. Rest, ice, elevation. (minimal of 3 x day) 2. Follow up with the orthopedic surgeon within one week. (Dr Savage)( 3. Return to the emergency department for worsening pain, swelling, numbness, weakness or other concerns. 4. Resume Xarelto on November 08 and aspirin on November [address] Mojica in the next week 6. Make an appointment to see your Primary Care Doctor in the next 7-10 days 8. Your potassium level has been low, eat sweet potatoes and bananas, f/u with your PCP to see if you need oral potassium medication - Labs/Radiology BMP Date: 11/06/18 (results called to Dr Mccord) HCT/HGB Date: 11/06/18 (results called to Dr Mccord) - Follow Up Care Current Providers and Referrals: Jake Savage MD [Medical Doctor] - As per Instructions Beatriz Mojica MD [Medical Doctor] - Daron Mccord MD [Primary Care Provider] -
--- NOTE | 2018-11-04 13:11 | GDS ---
[f rep st] DISCHARGE SUMMARY DISCHARGE DIAGNOSES: 1. Large left groin adductor hematoma. 2. Acute blood loss anemia. 3. Renal insufficiency. 4. Hypokalemia. 5. Hyponatremia. 6. Essential tremors. 7. Leukocytosis. 8. Hyperglycemia. 9. Chronic atrial fibrillation. 10. Hypertension. 11. Hyperlipidemia. CONSULTATIONS: 1. Dr. Savage. 2. Dr. Suresh Rangel. HISTORY OF PRESENT ILLNESS: Briefly, Ric Dwyer is an 83-year-old gentleman with a past medical history of atrial fibrillation, on Xarelto as well as aspirin therapy. He presented to the emergency room after he had a fall, with left hip pain, and he was noted to have a medial groin intramuscular hematoma. The pain was significant enough that he was having trouble walking. He was admitted for further evaluation. A CT of the pelvis was performed, and it showed 11 x 2 x 7.5 cm intramuscular hematoma on the left side. His Xarelto was discontinued as well as his aspirin. He required 1 unit of packed red blood cells. Hemoglobin and hematocrit are much improved. He will follow up with Dr. Savage in the next week. In addition, the and the were concerned about tremors that he has had for multiple years. He was seen and evaluated by Dr. Suresh Rangel. Recommendations were made. He can follow up with Dr. Rangel in the outpatient setting. HOSPITAL COURSE PER PROBLEM: 1. Left groin hematoma. This is status post a fall. He does not have compartment swelling, but has significant swelling. Dr. Savage evaluated him again today. He would like to see him within the week. Dr. Savage is okay if with restarting his oral anticoagulation early next week. 2. Acute blood loss anemia, improved with transfusion. 3. Renal insufficiency, stable. 4. Hypokalemia. His potassium has been on the low side of normal. Will have him follow up with his primary care provider in regard to this. 5. Hyponatremia, stable. 6. Essential tremors. He could take Inderal instead of metoprolol. This would help his tremors. He did not want to make changes in his medications at this time. 7. Leukocytosis, much improved. 8. Hyperglycemia. His A1c is 5.7. 9. Chronic atrial fibrillation. Dr. Mojica is his black top roller. She is aware that we are holding his aspirin and Xarelto. He will follow up with her in a week. 10. Hypertension, improved. 11. Hyperlipidemia, on statin therapy. DISCHARGE CONDITION: Stable. Blood pressure is 120/83, heart rate of 109, respiratory rate is 16, O2 sats on room air are 95%, temperature is 36.4 Celsius. MEDICATIONS AT DISCHARGE: Please see the EMR. DISCHARGE INSTRUCTIONS: 1. To elevate his left leg minimal 3 times a day as well as ice it. 2. Follow up with Dr. Savage in a week. 3. Return to the ER if he has worsening pain, fullness, numbness, or any other concerns. 4. Resume his Xarelto on Tuesday, November 08, and aspirin on November 06. 5. See Dr. Mojica next week. 6. Make an appointment to see his primary care doctor in the next 7 to 10 days. 7. His potassium has been low. Eat sweet potatoes and bananas and follow up with his PCP. He may need oral potassium medication. Greater than 30 minutes discharging and coordinating this patient's care. /[id number]/MODL MTDD
--- NOTE | 2018-11-04 15:59 | ASMTLACE ---
FLORENCIAE Length of stay for Answers: 3 days current admission Acuity / Level of Answers: Yes Care: Did the patient have an inpatient admission? Comorbidities - select Answers: Other Notes: AFib; HTN; HLD all that apply # of Emergency department Answers: 1-2 visits in the last 6 months Score: 8 Date Signed: 11/04/2018 03:58 PM Electronically Signed By:Sofía Tony RN
--- NOTE | 2018-11-04 16:25 | ASDISCHSUM ---
Discharge Information Plan Status:Home with Home Health Medically Cleared to Leave:11/03/2018 Discharge Date:11/04/2018 12:34 PM CM D/C Disposition:Home Health Service ADT D/C Disposition:Home Health Service Projected Discharge Date:11/05/2018 11:00 AM Transportation at D/C:Family Discharge Delay Reason: Follow-Up Date:11/05/2018 11:00 AM Discharge Slot:2 - 12:01 pm - 18:00 pm Final Diagnosis:Large left groin adductor hematoma, actue blood loss anemia, renal insufficiency, hy pokalemia, hyponatremia, essential tremors, leukocystosis, hyperglycemia, afib, HTN, hyperlipidemia Placement Information Referral Type:*Home Health Care Services Referral ID:[id number] Provider Name:[facility] ([facility]) Address 1[address] [place] [address] Address 2: City:[place] Selection Factors:Patient/Family Choice State:[place] Patient Contact Information Contact Name:EMILY Relationship: Address:[address] City:[place] Alternate Phone: State/Zip Code:[place] [address] Email: Financial Information Financial Class:Medicare Primary Plan Desc:MEDICARE INPATIENT Primary Plan Number:[id number] Secondary Plan Desc:CATHYA Secondary Plan Number:[id number] Assessment Information LACE LACE Length of stay for Answers: 3 days current admission Acuity / Level of Answers: Yes Care: Did the patient have an inpatient admission? Comorbidities - select Answers: Other Notes: AFib; HTN; HLD all that apply # of Emergency department Answers: 1-2 visits in the last 6 months Score: 8 Date Signed: 11/04/2018 03:58 PM Electronically Signed By:Sofía Tony RN [facility] CM Progress Note CM Note CM Note Notes: Pt admitted to hospital after fall on ice at home, on his way to the mailbox. Pt has a large hematoma that makes it difficult for him to walk. He lives at home with his , concerns for parkinsons, may need SNF. Hospitalist to get neurology consult. DC Plan: TBD Date Signed: 11/01/2018 04:03 PM Electronically Signed By:Sydni Vogel RN [facility] CM Progress Note CM Note CM Note Notes: Spoke w/pt and re; dc with homecare. Pt is agreeable, referral sent to [facility]. DC Plan: Home Care Date Signed: 11/03/2018 05:34 PM Electronically Signed By:Sydni Vogel RN Case Management Discharge Plan Note Case Management Discharge Discharge Order Complete? Answers: Yes Patient to Obtain Answers: via Family Medications Transportation Arranged Answers: Family/Friends Transport will Pick (Date 11/04/2018 12:00 AM & Time) MARIANO Complete Answers: No Notes: N/A Case Management Transport Answers: No Notes: N/A Form Complete Faxed Final Orders Answers: Yes Notes: Discharge orders and paperwork sent via [employer]; confirmed receipt with Chantell at [facility]. Agency/Facility Transfer Answers: Yes Notes: Discharge orders and Report Printed & Faxed to paperwork sent via Receiving Agency [employer]; confirmed receipt with Chantell at [facility]. Family Notified Answers: Yes Notes: at bedside Discharge Comments Notes: Reviewed chart, spoke with Candace Burdick NP regarding discharge plan of care, pt's progress. Per Candace, pt to discharge home with home care services (RN/PT/OT) and family support today. Pt was discharged and left hospital prior to speaking with CM. Call placed to [facility] , spoke with Chantell. Per Chantell, able to accept pt with a start of care for Tuesday11/05/18. Discharge orders and paperwork sent via [employer]; confirmed receipt with Chantell. Calls placed to pt and pt's Desiree Jordan. Left voice messages for both pt and spouse with home care information and follow up phone numbers. Call received from Ric. Update provided. Pt agreeable to homebound status. Address and phone number verified. Pt agreeable to services. No IM signed, pt left prior to signing. Pt to follow up as directed. CM available for any further issues or concerns. Discharge Plan: Home with [facility] (RN/PT/OT) and family support Date Signed: 11/04/2018 04:24 PM Electronically Signed By:Sofía Tony RN Intervention Information Intervention Type:IM-Pt. Not Available Date of Service:11/04/2018 03:58 PM Patient Type:Inpatient Staff Member:SHRUTI Tony, Sofía Hours: Discipline: Severity: Comment:IM not signed. Pt left prior to CM see ing.
== END 2018-11-04 12:34 | disposition home health service (06) | DRG 605 ==
LOC: EDUNIT# → F3E 12:18 → OBSVTOIN 11-01 16:38
PROVIDERS: ADMIT Internal Medicine; ATTEND Family Medicine
PROC: 30233N1 Transfusion of Nonautologous Red Blood Cells into Peripheral Vein, Percutaneous Approach (ICD-10-PCS; principal; 2018-11-03)
DX: S30.1XXA Contusion of abdominal wall, initial encounter (principal); W19.XXXA Unspecified fall, initial encounter; Y92.9 Unspecified place or not applicable; D62 Acute posthemorrhagic anemia; N28.9 Disorder of kidney and ureter, unspecified; E87.6 Hypokalemia; E87.1 Hypo-osmolality and hyponatremia; G25.0 Essential tremor; D72.829 Elevated white blood cell count, unspecified; R73.9 Hyperglycemia, unspecified; I48.2 Chronic atrial fibrillation; I10 Essential (primary) hypertension; E78.5 Hyperlipidemia, unspecified; Z79.01 Long term (current) use of anticoagulants; Z79.82 Long term (current) use of aspirin
CPT/HCPCS: 97116-GP; 97162-GP; 97166-GO; 97530-GP; 97535-GO; G0378; J1170; P9016; P9021

== ENCOUNTER → 2018-12-22 | Outpatient (CLI) | payer OTHER | LOC: FCPNEURO 20:00 | PROVIDERS: ATTEND Psychiatry & Neurology Sleep Medicine | DX: G47.31 Primary central sleep apnea (principal) ==